=== PATIENT | male | born 1955 | race Caucasian/White ===

== ENCOUNTER 2018-05-16 05:26 | Day surgery (SDC) | payer BC, OTHER ==
[2018-05-08 07:59] LABS: ABSOLUTE NEUTROPHILS 3.5 thou/uL (1.4-8.2); BASOPHILS 1.3 % (0.0-2.0); EOSINOPHILS 1.6 % (0.0-3.0); HEMATOCRIT 42.5 % (42.0-52.0); HEMOGLOBIN 14.5 gm/dL (14.0-18.0); LYMPHOCYTES 26.2 % (24.0-44.0); MCH 31.2 pg (26.0-34.0); MCV 91.6 fL (80.0-100.0); MONOCYTES 10.2 % (1.0-8.0); PLATELET COUNT 194 thou/uL (150-400); POLYS 60.7 % (36.0-66.0); RBC 4.64 mil/uL (4.50-6.00); RDW 14.3 % (10.5-14.5); WBC 5.7 thou/uL (4.0-11.0)
[2018-05-08 08:09] LABS: CALCIUM 9.5 mg/dL (8.5-10.1); POTASSIUM 4.6 mmol/L (3.5-5.1)
[~2018-05-16] VITALS: Ht 182.9 cm; Wt 117.9 kg
--- NOTE | ~2018-05-16 | O ---
[facility] [place] [address] OPERATIVE REPORT Name: FRANTZ ST Room #: 150-7 [facility] M..#: [id number] Admission: 05/16/18 Attend Phys: Vinh Benitez MD, F Discharge: Date of : 55 Report #: [id number] THIS REPORT FOR: //name// CC: Primo Benitez DATE OF SERVICE: 05/16/2018 SURGEON: Vinh Benitez MD IN FILE OPERATOR: HANDY Mckeon PREOPERATIVE DIAGNOSES: 1. Incarcerated umbilical hernia. 2. Type 2 diabetes mellitus. 3. Gastroesophageal reflux disease. 4. Obstructive sleep apnea. POSTOPERATIVE DIAGNOSES: 1. Incarcerated umbilical hernia. 2. Type 2 diabetes mellitus. 3. Gastroesophageal reflux disease. 4. Obstructive sleep apnea. PROCEDURE: Laparoscopic repair of incarcerated umbilical hernia with a [address] mesh. ANESTHESIA: General endotracheal anesthesia and local anesthetic. ESTIMATED BLOOD LOSS: 5 mL. SPECIMEN: Incarcerated hernia content. COMPLICATIONS: None appreciated. INDICATIONS FOR PROCEDURE: This is a 62-year-old male patient of Dr. Primo Flynn, who presented with an umbilical bulge, present over the past several years with a progressive increase in the size of the bulge and defect. The patient denies pain or a change in his bowel habits. Exam revealed a partially reducible umbilical hernia. The patient presents now for laparoscopic repair of his incarcerated umbilical hernia. OPERATIVE FINDINGS: Upon entrance in the abdominal cavity, omentum was seen extending up into the hernia defect. After reducing the herniated content and skeletonizing the defect, the defect itself was 2 cm in diameter. This was [facility] [address] [place] [address] OPERATIVE REPORT Name: FRANTZ ST [facility] Room #: 150-7 [facility] M..#: [id number] Admission: 05/16/18 Attend Phys: Vinh Benitez MD, F Discharge: Date of : 55 Report #: [id number] amenable to primary closure with patch repair (intraperitoneal onlay). The [address] round mesh patch was chosen for the repair. There was no evidence for bowel involvement. No other significant intra-abdominal pathology was seen. At the conclusion of the operation, the sponge, needle, and instrument counts were correct. DESCRIPTION OF PROCEDURE IN DETAIL: After the risks, benefits, and expectations of the operation were discussed in detail with the patient, informed consent was obtained. The patient was identified in the preoperative holding area. He was given IV antibiotics as documented in the chart in line with SCIP metrics. The patient was then taken to the operating room and he was placed in the supine position. SCDs were placed on the patient's bilateral lower extremities and pneumatic compression was initiated. The patient was then given IV sedation and he was intubated without incident. His abdomen was prepped and draped in a standard sterile fashion. A time-out was performed to identify the correct patient and procedure. Local anesthetic was infiltrated into the skin and subcutaneous tissue and the left subcostal area where a small transverse incision was made. A 5 mm Visiport was placed intraperitoneally with a 0-degree angled laparoscope. Pneumoperitoneum was achieved with insufflation of carbon dioxide to 15 mmHg. A 30-degree angled laparoscope was inserted. A left lateral 12-mm and left lower quadrant 5 mm port were each placed under direct visualization after local anesthetic was infiltrated into the skin and subcutaneous tissue and appropriately sized incisions were made. Operative findings are as noted above. The incarcerated omentum was reduced from the hernia defect. Its attachments to the hernia sac were divided. The abdominal wall fat was then dissected off the abdominal wall and the hernia sac was removed from the hernia defect. The abdominal wall fat was transected and placed in the right upper quadrant of the abdomen for later removal. The defect had been fully skeletonized. The umbilical defect was then closed with the needle tipped suture passer using an 0 PDS suture. A vanfrh-na-ahhrz suture was placed as well as an additional simple interrupted suture. The sutures were tagged. The mesh was then prepared on the backtable, then rolled and placed within the abdominal cavity. The mesh was unrolled with the balloon side down. The eyelet of the inflation catheter was delivered through the abdominal wall using the needle tipped grasper. Prior to advancing the mesh to the anterior abdominal wall, the sutures were tied under direct visualization after decreasing the intra-abdominal pressure to 8 mmHg. The balloon was then inflated and the mesh was advanced to the anterior abdominal wall. The balloon would serve as a scaffolding for placement of the fixation tacks. The catheter was clamped at the skin level. The SecureStrap absorbable fixation device was then used to fix the mesh to the anterior abdominal wall around the periphery and less than 1 cm intervals. After circumferentially tacking the mesh, the catheter was divided at the skin level [facility] [address] [place] [address] OPERATIVE REPORT Name: FRANTZ ST Room #: 150-[address] [facility].#: [id number] Admission: 05/16/18 Attend Phys: Vinh Benitez MD, F Discharge: Date of : 55 Report #: [id number] and the balloon was removed from the abdominal cavity. Tacks were also placed more internally on the mesh to secure to the anterior abdominal wall. There was good approximation of the mesh to the anterior abdominal wall with no rippling of the mesh. The incarcerated hernia content was then removed from the abdominal cavity through the 12 mm port site. The abdominal cavity was surveyed and there was no other pathology seen. An 0 PDS suture was then used to close the 12 mm port site fascial opening with the Christopher-Taina laparoscopic fascial closure device. The suture was tied under direct visualization to ensure no incorporation of intra-abdominal content. The abdominal cavity was then desufflated and the ports were removed. Interrupted subcuticular 4-0 Monocryl sutures and Dermabond were used to close the skin incisions. The patient tolerated the procedure well. He was awakened, extubated, and taken to the recovery room in stable condition with no apparent intraoperative complications. By: [id number] Vinh Benitez MD, FACS /nt
--- NOTE | ~2018-05-16 | PATH ---
[facility] [address] [place] [address] PATHOLOGY RPT PROCEDURE Name: SAMMY RUSSELL Room #: DEP [facility]..#: [id number] Admission: 05/16/18 Date of : 55 Discharge: 05/16/18 Report #: [id number] Path Case #: [id number] [facility] Accession Number: [id number] . 01 Material submitted: . INCARCERATED HERNIA SAC . 01 Clinical history: . Umbilical hernia . 02 Diagnosis: Incarcerated hernia sac, repair: - Congested fibroadipose / vascular connective tissue, compatible with hernia sac. . (IUV:mml; 05/17/18) QLM/05/17/2018 . 02 Electronically signed: . Es Duff MD, Pathologist NPI- [id number] . 01 Gross description: . The specimen is received in formalin, labeled "Sammy Russell, incarcerated hernia sac", are two yellow lobulated adipose tissue containing ko-pink fibrous membrane measuring 3.0 x 1.2 x 1.0 cm and 9.6 x 3.2 x 0.7 cm. No discrete nodules are masses identified. Social Media Editor tissue is submitted in A1. (SWS; 05/16/2018) SHS/SHS . 02 Pathologist provided ICD-10: K42.0 . 02 CPT . 816871 Specimen Comment: A courtesy copy of this report has been sent to Specimen Comment: [phone], . Specimen Comment: Report sent to / DR MCMAHON Performed at: [address], [place], [place] [id number] MD Remberto Guadarrama MD Phone: [phone] Performed at: [address], [place] [id number] MD Es Duff MD Phone: [phone]
--- NOTE | ~2018-05-16 | EKG ---
[address] [address] ELECTROCARDIOGRAM REPORT Name: FRANTZ ST [id number] Admission: Attend Phys: Vinh Benitez MD, F Discharge: Date of : 55 Report #: [id number] THIS REPORT FOR: //name// [facility] Test Date: 2018-05-08 Test Time: 08:18:09 Pat Name: FRANTZ ST Department: Room: Gender: Chauffeur: Nolvia CARPENTER : 1955 Requested By: Vinh Benitez Order Number: [id number] MD: Wagner Lares Measurements Intervals Agency Rate: 58 P: 30 UT: 223 QRS: -16 QRSD: 99 T: 17 QT: 415 QTc: 408 Interpretive Statements Sinus rhythm Prolonged UT interval Borderline left axis deviation Abnormal R-wave progression, early transition No previous ECG available for comparison Electronically Signed On 05-08-2018 8:27:20 ASSISTANT CUSTOMER SERVICE MANAGER by Wagner Lares [email or web address] <ELECTRONICALLY SIGNED> By: Wagner Lares MD 05/08/18826 7 7 Wagner Lares MD /NEEL
[~2018-05-16 05:26] MED LIST: ATENOLOL 25 MG25 M1 PO; BELSOMRA20 MG PO; CENTRUM SILVER1 EAC2 PO; DEXILANT60 MG PO; FINASTERIDE5 MG PO; HYDROCODONE-AP1 EAC6 PO; LEVOTHYROXIN0.175 MG PO; METFORMIN HCL500 MG PO; NORFLEX100 MG PO; NORVASC5 MG PO; SINGULAIR 10 MG10 M1 PO; SYNTHROID175 MCG PO; ZANTAC 150MG T150 MG PO
[2018-05-16 09:54] VITALS: BP 128/74
[2018-05-16] MEDS ORDERED: SENNA-S TABLET1 EACH PO (13:41)
[2018-05-16] MEDS ORDERED: PERCOCET PO (13:41)
== END 2018-05-16 15:00 | disposition home or self-care (01) ==
LOC: TBA 05:26 → OR 05:26
PROVIDERS: Surgery
DX: K42.0 Umbilical hernia with obstruction, without gangrene (principal); I10 Essential (primary) hypertension; E11.9 Type 2 diabetes mellitus without complications; E03.9 Hypothyroidism, unspecified; E78.5 Hyperlipidemia, unspecified; K21.9 Gastro-esophageal reflux disease without esophagitis; G47.33 Obstructive sleep apnea (adult) (pediatric); Z87.442 Personal history of urinary calculi; Z87.19 Personal history of other diseases of the digestive system; Z98.890 Other specified postprocedural states; Z79.899 Other long term (current) drug therapy
CPT/HCPCS: 50010; 50101; 50249; 50386; 50455; 50555; 50558; 50962; 50980; 50984; 52265; 53307; 54022; 54118; 56462; 56525; 56526; 57092; 62110; 62900; 70005

== ENCOUNTER → 2020-11-07 | Outpatient (CLI) | payer OTHER ==
[~2020-11-07] VITALS: Ht 182.9 cm; Wt 111.1 kg
[~2020-11-07] MED LIST changes: +ALEVE220 M1 PO; +ATENOLOL 50MG T50 M1 PO; +IRON325 M1 PO; +PERCOCET PO; +PROTONIX 20 MG20 MG PO; +SENNA-S TABLET1 EACH PO; +SYNTHROID175 MC1 PO; -SYNTHROID175 MCG PO
--- NOTE | 2020-11-10 15:04 | P ---
[facility] [place] [address] PROCEDURE REPORT Name: FRANTZ ST Room #: [facility] [id number] Admission: 11/07/20 Attend Phys: Prudencio Mei Discharge: Date of : 55 Report #: [id number] THIS REPORT FOR: cc: Primo Flynn MD, Rene P. MD McElhinney, Christian C. MD ~ DOC #: [id number] cc: MD Prudencio Walton MD DATE OF SERVICE: 11/07/2020 PROCEDURE PERFORMED: Upper endoscopy with biopsies. HISTORY OF PRESENT ILLNESS: The patient is a 65-year-old male with a history of anemia. I do not have a copy of his recent labs. He had a colonoscopy approximately 2 years ago with diverticulosis apparently, but otherwise normal. No previous history of upper endoscopy. He denies any heartburn. He does report some mid epigastric abdominal pain at times. No nausea, vomiting or dysphagia. His weight has been stable. He takes Aleve on a daily basis. Plan is for upper endoscopy. DESCRIPTION OF PROCEDURE: The risks and benefits of the procedure were explained to the patient, those risks including but not limited to bleeding, perforation and the risk of sedation. He understood these risks and gave informed consent. Sedation was given using propofol per anesthesia. Next, using a standard Olympus upper endoscope, the scope was placed in the patient's mouth and advanced under direct vision through the esophagus, stomach and into the second portion of the duodenum. The esophagus was normal throughout. The GE junction was normal. Overall, the gastric mucosa was normal in the fundus and body; however, in the antrum, he had a moderate gastritis. There were several white nodules in this area as well. Multiple biopsies were obtained. There was no evidence of bleeding, no ulcerations were seen. The pylorus was normal and patent. The duodenal bulb, first and second portion were all normal. Random biopsies of the duodenum were also obtained to rule out the possibility of celiac sprue. The scope was then withdrawn and the procedure terminated. The patient tolerated the procedure well. IMPRESSION: 1. Gastritis in the gastric antrum. No active bleeding, but could be an etiology of anemia. 2. Otherwise, normal upper endoscopy. RECOMMENDATIONS: 1. Await biopsy results. 2. Recommend a trial of daily PPI therapy. [address] [address] PROCEDURE REPORT Name: FRANTZ ST LALI [id number] Admission: 11/07/20 Attend Phys: Prudencio Mei Discharge: Date of : 55 Report #: [id number] Thank you for allowing me to participate in his care. Prudencio Krause MD CCM/ELLA <ELECTRONICALLY SIGNED> By: Prudencio Krause MD 11/10/20 1504 0840 2102 Prudencio Krause MD /nt
--- NOTE | 2020-11-10 18:06 | PATH ---
[facility] [place] [address] PATHOLOGY RPT PROCEDURE Name: SAMMY RUSSELL Room #: REG DAVIN CarlosAnirudh.#: [id number] Admission: 11/07/20 Date of : 55 Discharge: Report #: [id number] Path Case #: [id number] [facility] Accession Number: [id number] . 01 Material submitted: . PART A: duodenum - DUODENAL BX R/O SPRUE PART B: gastrointestinal site - BX OF GASTRITIS . 01 Clinical history: . ANEMIA GASTRITIS EGD . 02 Diagnosis: A Small bowel mucosa, duodenum R/O sprue, endoscopic biopsy: - Nonspecific duodenitis with focal fundic-type metaplasia, compatible with peptic duodenitis. - Negative for villous blunting or increase in intraepithelial lymphocytes. . B. Gastric mucosa, gastritis, endoscopic biopsy: - Moderate active gastritis. - Features of reactive gastropathy present. - Active ulceration identified. - Negative for intestinal metaplasia, atrophy or dysplasia. - Negative for Helicobacter pylori (properly controlled immunohistochemical stain performed). See comment. (IUV:chito; 11/10/2020) S 11/10/2020 1429 Local . 02 Comment: An intensive search for Helicobacter pylori-like organisms is negative. Absence of such organisms does not entirely exclude the possibility and may be due to sampling. Other possible etiologies may include chemical gastritis, autoimmune gastritis, gastritis associated with inflammatory bowel disease. Please correlate with clinical, endoscopic, and microbiological studies if clinically indicated. (IUV:chito; 11/10/2020) . 02 Electronically signed: . Es Duff MD, Pathologist NPI- [id number] . 01 Gross description: . A. Received in formalin labeled "Sammy Russell, duodenal biopsy rule out sprue" are multiple valencia-brown soft tissue fragments measuring in aggregate 1.4 x 0.7 x 0.3 cm. The specimen is submitted entirely in A1. [address] [address] PATHOLOGY RPT PROCEDURE Name: SAMMY RUSSELL [facility] Room #: REG [facility].#: [id number] Admission: 11/07/20 Date of : 55 Discharge: Report #: [id number] Path Case #: [id number] . B. Received in formalin labeled "Sammy Russell biopsy of gastritis" are multiple valencia-brown soft tissue fragments measuring in aggregate 1.6 x 0.4 x 0.3 cm. The specimen is submitted entirely in B1. ([facility]; 11/09/2020) GZA/GZA 11/09/2020 1149 Local . 02 Pathologist provided ICD-10: K29.80, K29.70, K25.9 . 02 CPT . 597211, 158160, O84051 Specimen Comment: A courtesy copy of this report has been sent to [phone] Specimen Comment: [phone] Specimen Comment: Report sent to / DR MCMAHON Performed at: [address], [place] [id number] MD Abdirashid Navarro MD Phone: [phone] Performed at: [address] [id number] MD Es Duff MD Phone: [phone]
== END | disposition home or self-care (01) ==
LOC: GI 07:23
PROVIDERS: ATTEND Specialist
DX: R10.13 Epigastric pain (principal); K29.70 Gastritis, unspecified, without bleeding; K29.80 Duodenitis without bleeding; K25.9 Gastric ulcer, unspecified as acute or chronic, without hemorrhage or perforation; I10 Essential (primary) hypertension; E11.9 Type 2 diabetes mellitus without complications; E03.9 Hypothyroidism, unspecified; G47.30 Sleep apnea, unspecified; D64.9 Anemia, unspecified; K21.9 Gastro-esophageal reflux disease without esophagitis; Z98.890 Other specified postprocedural states; Z79.899 Other long term (current) drug therapy; Z98.42 Cataract extraction status, left eye; Z98.41 Cataract extraction status, right eye; Z87.442 Personal history of urinary calculi
CPT/HCPCS: 62110; 62900